=== PATIENT | female | born 1995 | race American Indian/Alaskan Native ===

== ENCOUNTER 2019-05-20 08:09 | Emergency (ER) | payer OTHER ==
[2019-05-20 08:15] VITALS: BP 130/76
[2019-05-20] MEDS ORDERED: ACETAMINOPHEN 325 MG TAB PO ONE (08:33)
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
[2019-05-20] MEDS ORDERED: ONDANSETRON 4 MG ODT TAB PO ONE (09:40)
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
== END 2019-05-20 11:36 | disposition home or self-care (01) ==
LOC: ED 08:09
DX: O9A.211 Injury, poisoning and certain other consequences of external causes complicating pregnancy, first trimester (principal); M54.2 Cervicalgia; R10.30 Lower abdominal pain, unspecified; M79.10 Myalgia, unspecified site; Z87.891 Personal history of nicotine dependence; Z3A.08 8 weeks gestation of pregnancy; V49.49XA Driver injured in collision with other motor vehicles in traffic accident, initial encounter; Y93.89 Activity, other specified; Y92.410 Unspecified street and highway as the place of occurrence of the external cause; Y99.8 Other external cause status
CPT/HCPCS: 76801; Q0162

== ENCOUNTER 2019-12-17 04:13 | Inpatient (IN) | payer OTHER, MEDICAID ==
--- NOTE | 2019-12-17 05:12 | History and Physical Report ---
History of Present Illness Date of examination: 12/17/19 (pt arrived to Triage in active labor) Chief complaint: having pains since 2099 History of present illness: EDC Calculations LMP: 12/27/2019 EDC Confirmation: 12/27/2019 Gestational Age: 7 1/7 weeks Past History : 1 Term Births: 0 Premature Births: 0 Living Children: 0 Para: 0 Mult. Births: 0 Prev : 0 Prev. attempt? 0 Aborta: 0 Elect. Ab: 0 Spont. Ab: 0 Ectopics: 0 Risk Factors: Smoked Tobacco Use: Never smoker Smokeless Tobacco Use: Never Passive smoke exposure: no Drug use: no HIV high-risk behavior: no Alcohol use: no Exercise: no Seatbelt use: 100 % Past Medical History: Reviewed history from 08/02/2017 and no changes required: Negative Past Medical History Past Surgical History: Reviewed history from 08/02/2017 and no changes required: negative Past Medical History Anesthesia Complications: negative Anemia: negative Autoimmune Disorder: negative Bleeding Disorder: negative Blood Transfusions: negative Breast Disease: negative Diabetes: negative Heart Disease: negative Hypertension: negative Hepatitis/Liver Disease: negative Kidney Disease/UTI: negative Neurologic/Epilepsy/Migraines: negative Phlebitis/Varicosities: negative Psychiatric: negative Pulmonary Disease/Asthma: negative Thyroid Disease: negative Hospitalizations: negative 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 Abnormal PAP: negative Social Hx: Patient is single no e/t/d Infection History HIV Risk Eval: no Varicella/Chicken Pox Status: Unknown Genetic History Congenital Heart Defect: Mom: no Dad: no [place] Disease: Mom: no Dad: no Thalassemia Mom: no Dad: no Neural Tube Defect Mom: no Dad: no Down's Syndrome Mom: yes Dad: no Comments: 2nd cousin Han-Sachs Mom: no Dad: no Sickle Cell Disease/Trait Mom: no Dad: no Hemophilia Mom: no Dad: no Muscular Dystrophy Mom: no Dad: no Cystic Fibrosis Mom: no Dad: no Armand Chorea Mom: no Dad: no Mental Retardation Mom: no Dad: no Fragile X Mom: no Dad: no Other Genetic/Chromosomal Disorder Mom: no Dad: no Child w/other defect Mom: no Dad: no Enviromental Exposures Xray Exposure: no Medication, drug, or alcohol use since LMP: no Chemical/Other Exposure: no Exposure to Cat Liter: no Hx of Parvovirus (Fifth Disease): no Occupational Exposure to Children: none Active Medications (reviewed today): None Current Allergies (reviewed today): No known allergies Past History - Obstetrical History Expected Date of Delivery: 12/27/19 Actual Gestation: 38 Week(s) 4 Day(s) : 1 Para: 0 Hx # Term Pregnancies: 0 Number of Pregnancies: 0 Spontaneous Abortions: 0 Induced : 0 Number of Living Children: 0 Medications and Allergies Allergies Allergy/AdvReac Type Severity Reaction Status Date / Time No Known Allergies Allergy Unverified 05/20/19 08:10 Home Medications Medication Instructions Recorded Confirmed Last Taken Type Ondansetron [Zofran Odt] 4 mg PO Q8HR PRN #20 tab.rapdis 05/20/19 Unknown Rx - Vital Signs Vital signs: Vital Signs Pulse BP 83 112/64 12/17/19 04:30 12/17/19 04:30 Temp Pulse Resp BP Pulse Ox 98.2 F 83 18 112/64 12/17/19 04:32 12/17/19 04:32 12/17/19 04:32 12/17/19 04:32 - Physical Exam Breasts: Positive: deferred Cardiovascular: Regular rate, Normal S1, Normal S2 Abdomen: Positive: normal appearance, soft, normal bowel sounds. Negative: distention, tenderness Genitourinary (Female): Positive: normal external genitalia Vulva: both: normal Vagina: Positive: normal moisture. Negative: discharge Cervix: Negative: lesion, discharge Uterus: Positive: normal size, normal contour Adnexa: both: normal Anus/Rectum: Positive: normal perianal skin, heme negative. Negative: rectal mass, hemorrhoids Extremities: Positive: normal Deep Tendon Reflex Grade: Normal +2 - Obstetrical FHR: category 1 Uterine Contraction Monitor Mode: External Cervical Dilatation: 5 (per crop or grain farmer Linda) Cervical Effacement Percentage: 90 station: -2 Uterine Contraction Pattern: Regular Uterine Tone Measurement Phase: Resting Uterine Contraction Intensity: Moderate Results All other labs normal. 2020: Tests: (1) Ct, Ng, Trich vag by BIN ([id number]) Order Note: Clinical Information: SRC:VR SRC:UR Chlamydia by BIN Negative Negative *1 Gonococcus by BIN Negative Negative *2 Trich vag by BIN Negative Negative *3 Tests: (2) Strep Gp B BIN ([id number]) ! Strep Gp B BIN Negative Negative *4 06-08-19 HBsAg Screen Negative Negative *1 RPR Non Reactive Non Reactive *2 Rubella Antibodies, IgG 2.16 index Immune >0.99 *3 Non-immune <0.90 Equivocal 0.90 - 0.99 Immune >0.99 ABO Grouping A *4 Rh Factor Positive *5 Please note: Prior records for this patient's ABO / Rh type are not available for additional verification. Antibody Screen Negative Negative *6 WBC 7.8 x10E3/uL 3.4-10.8 *7 RBC [L] 3.58 x10E6/uL 3.77-5.28 *8 Hemoglobin [L] 11.0 g/dL 11.1-15.9 *9 Hematocrit [L] 33.8 % 34.0-46.6 *10 MCV 94 fL 79-97 *11 MCH 30.7 pg 26.6-33.0 *12 MCHC 32.5 g/dL 31.5-35.7 *13 RDW 14.6 % 12.3-15.4 *14 Platelets 249 x10E3/uL 150-450 *15 Neutrophils 71 % Not Estab. *16 Lymphs 23 % Not Estab. *17 Monocytes 5 % Not Estab. *18 Eos 1 % Not Estab. *19 Basos 0 % Not Estab. *20 ! Immature Cells <No Reported Value> *21 Neutrophils (Absolute) 5.6 x10E3/uL 1.4-7.0 *22 Lymphs (Absolute) 1.8 x10E3/uL 0.7-3.1 *23 Monocytes(Absolute) 0.4 x10E3/uL 0.1-0.9 *24 Eos (Absolute) 0.1 x10E3/uL 0.0-0.4 *25 Baso (Absolute) 0.0 x10E3/uL 0.0-0.2 *26 ! Immature Granulocytes 0 % Not Estab. *27 ! Immature Grans (Abs) 0.0 x10E3/uL 0.0-0.1 *28 ! NRBC <No Reported Value> *29 Hematology Comments: <No Reported Value> *30 Tests: (2) HB Solu + Rflx [facility] ([id number]) Hemoglobin (Hgb) Solubility Negative Negative *31 Tests: (3) Panel [id number] ([id number]) HIV Screen 4th Generation wRfx Non Reactive Non Reactive *32 Tests: (4) HCV Ab w/Rflx to Verification ([id number]) ! HCV Ab <0.1 s/co ratio 0.0-0.9 *33 Tests: (5) Comment: ([id number]) ! Comment: [facility] *34 Non reactive HCV antibody screen is consistent with no HCV infection, unless recent infection is suspected or other evidence exists to indicate HCV infection. Tests: (6) Urine Culture, Routine ([id number]) Urine Culture, Routine Final report *35 Tests: (7) Result ([id number]) ! Result 1 No growth *36 Assessment and Plan 24yo @ 38 weeks in active labor. GBS negative. All orders in EMR. Anticipate delivery. - Patient Problems (1) Maternal varicella, non-immune Onset Date: ~12/17/19 Current Visit: Yes Status: Acute Plan to address problem: Will offer varicella vaccine
[2019-12-17] MEDS ORDERED: MINERAL OIL 30 ML ORAL LIQD PO PRN (05:13)
[2019-12-17] MEDS ORDERED: ONDANSETRON 4 MG/2 ML INJ IV PRN ×2 (05:13→19:15)
[2019-12-17] MEDS ORDERED: TERBUTALINE 1 MG/1 ML INJ SUB-Q PRN (05:13)
[2019-12-17] MEDS ORDERED: ePHEDrine SULFATE 50 MG/1 ML INJ IV PRN ×2 (05:13→07:23)
[2019-12-17] MEDS ORDERED: fentaNYL 100 MCG/2 ML INJ IV PRN (05:13)
[2019-12-17] MEDS ORDERED: LIDOCAINE (2%) 20 MG/1 ML VIAL 20 ML MDV INFILTRATI ONE (05:13)
[2019-12-17] MEDS: LACTATED RINGERS 1,000 ML IV SCH ×2 (05:42→08:54)
[2019-12-17 06:00] LABS: Hematocrit 29.1 % (30.3-42.9); Hemoglobin 9.8 gm/dl (10.1-14.3); Mean Corpuscular HGB Conc 34 % (30-34); Mean Corpuscular Volume 97 fl (79-97); Platelet Count 176 K/mm3 (140-440); Red Blood Count 2.99 M/mm3 (3.65-5.03); Red Cell Distribution Width 13.6 % (13.2-15.2)
[2019-12-17] MEDS ORDERED: OXYTOCIN DRIP 30 UNITS/500 ML BAG IV SCH (06:00)
[2019-12-17] MEDS ORDERED: OXYTOCIN 20 UNIT/1000ML DRIP 20 UNITS/1,000 ML BAG IV SCH ×2 (06:00→20:00)
--- NOTE | 2019-12-17 06:20 | Event Note ---
Date: 12/17/19 (pt bolusing for epidural) Pt in good spirits. Excited to be in labor. SVE 5,90,0 Continue POC Report to Dipika BOLDEN Anticipate delivery
[2019-12-17] MEDS ORDERED: NALOXONE 2 MG/2 ML INJ IV PRN (07:23)
[2019-12-17] MEDS ORDERED: DEXMEDETOMIDINE 200 MCG/2 ML VIAL IV ONE (07:23)
--- NOTE | 2019-12-17 07:24 | Anesthesia Consultation ---
Anesthesia Consult and Med Hx Date of service: 12/17/19 - Airway Anesthetic Teeth Evaluation: Good ROM Head & Neck: Adequate Mental/Hyoid Distance: Adequate Mallampati Class: Class II Intubation Access Assessment: Good - Pulmonary Exam CTA: Yes - Cardiac Exam Cardiac Exam: RRR - Pre-Operative Health Status ASA Pre-Surgery Classification: ASA2 Proposed Anesthetic Plan: Epidural - Pulmonary Hx Smoking: No Hx Asthma: No Hx Respiratory Symptoms: No SOB: No COPD: No Home Oxygen Therapy: No Hx Pneumonia: No Hx Sleep Apnea: No - Cardiovascular System Hx Hypertension: No Hx Coronary Artery Disease: No Hx Heart Attack/AMI: No Hx Angina: No Hx Percutaneous Transluminal Coronary Angioplasty (PTCA): No Hx Cardia Arrhythmia: No Hx Pacemaker: No Hx Internal Defibrillator: No Hx Valvular Heart Disease: No Hx Heart Murmur: No Hx Peripheral Vascular Disease: No - Central Nervous System Hx Neuromuscular Disorder: No Hx Seizures: No CVA: No Hx Back Pain: No Hx Psychiatric Problems: No - Gastrointestinal Hx Ulcer: No Hx Gastroesophageal Reflux Disease: No - Endocrine Hx Renal Disease: No Hx End Stage Renal Disease: No Hx Cirrhosis: No Hx Liver Disease: No Hx Insulin Dependent Diabetes: No Hx Non-Insulin Dependent Diabetes: No Hx Thyroid Disease: No Hx Hypothyroidism: No Hx Hyperthyroidism: No - Hematic Hx Anemia: No Hx Sickle Cell Disease: No - Other Systems Hx Alcohol Use: No Hx Substance Use: No Hx Cancer: No Hx Obesity: No
--- NOTE | 2019-12-17 07:47 | Progress Note ---
Labor Epidural - Labor Epidural Start Time: 07:27 Stop Time: 07:35 Performed by:: Epidural Procedure: Patient is requesting a laboring epidural for laboring pain. Patient IDed, H&P reviewed, all questions and concerns were answered, and consent was signed. Timeout was performed at bedside. Patient in sitting position. Sterile prep and drape was performed. [3] ml of 1% lidocaine skin wheal at L[4]- L [5]. 18- gauge Touhy epidural needle was advanced to loss of resistance with air technique at 6cm. Negative CSF negative blood. Epidural catheter advanced to [12] centimeters. [Negative] Aspiration [negative] test dose. Sterile dressing applied. Patient tolerated procedure.
[2019-12-17] MEDS ORDERED: fentaNYL-BUPIV 2 MCG/ML-0.125% 200 MCG/100 ML BAG EPIDURAL SCH (08:00)
--- NOTE | 2019-12-17 08:06 | Progress Note ---
Assessment and Plan A: 24 y.o. @ term in active labor. Comfortable with epidural. AROM, cervical exam 6/100/0. P: Continue with labor management. Pitocin per protocol. Anticipate . Subjective - Subjective Date of service: 12/17/19 (Comfortable after epidural placement. ) Principal diagnosis: Active labor @ term Objective - Vital Signs Vital Signs: Vital Signs - 12hr 12/17/19 12/17/19 12/17/19 04:30 04:32 05:09 Temperature 98.2 F 98.0 F Pulse Rate 83 83 87 Respiratory 18 18 Rate Blood Pressure 112/64 Blood Pressure 112/64 105/65 [Left] O2 Sat by Pulse Oximetry 12/17/19 12/17/19 12/17/19 05:24 05:52 07:22 Temperature Pulse Rate 87 114 H Respiratory 18 Rate Blood Pressure 105/65 Blood Pressure [Left] O2 Sat by Pulse 94 Oximetry 12/17/19 12/17/19 12/17/19 07:27 07:32 07:37 Temperature Pulse Rate 107 H 88 82 Respiratory Rate Blood Pressure 114/57 Blood Pressure [Left] O2 Sat by Pulse 99 99 98 Oximetry 12/17/19 12/17/19 12/17/19 07:42 07:47 07:52 Temperature Pulse Rate 68 66 70 Respiratory Rate Blood Pressure 98/56 96/51 Blood Pressure [Left] O2 Sat by Pulse 98 98 98 Oximetry 12/17/19 12/17/19 07:57 07:58 Temperature Pulse Rate 67 69 Respiratory Rate Blood Pressure 102/55 Blood Pressure [Left] O2 Sat by Pulse 98 Oximetry - Exam Breasts: deferred Cardiovascular: Regular rate Lungs: Normal air movement Abdomen: Present: normal appearance, soft Vulva: both: normal Uterus: Present: normal FHR: category 1 Uterine Contraction Monitor Mode: External Cervical Dilatation: 6 (AROM small amount of clear to pink fluid) Cervical Effacement Percentage: 100 station: 0 Uterine Contraction Pattern: Regular Uterine Tone Measurement Phase: Resting Uterine Contraction Intensity: Moderate Extremities: normal Deep Tendon Reflex Grade: Normal +2 - Labs Labs: Abnormal Labs 12/17/19 05:20 RBC 2.99 L Hgb 9.8 L Hct 29.1 L MCH 33 H Laboratory Results - last 24 hr 12/17/19 12/17/19 05:20 05:20 WBC 8.5 RBC 2.99 L Hgb 9.8 L Hct 29.1 L MCV 97 MCH 33 H MCHC 34 RDW 13.6 Plt Count 176 Blood Type A POSITIVE Antibody Screen Negative
--- NOTE | 2019-12-17 12:43 | Procedure Note ---
OB Delivery Note - Delivery Date of Delivery: 12/17/19 (Pt delivered at 1208) Looping Inspector: MELBA RAMOS Estimated blood loss: 200cc - Vaginal Delivery presentation: vertex Delivery position: OA Delivery induction: none Delivery augmentation: rupture of membranes, pitocin Delivery monitor: external FHT, external uterine Route of delivery: Delivery placenta: spontaneous Delivery cord: nuchal cord (X 1, easily reduced.), 3 umbilical vessels Episiotomy: none Delivery laceration: 1st degree (1st degree perineal laceration, no repair noted.), other (Right labial abrasion, no repair needed.) Anesthesia: epidural Delivery comments: of viable male infant over intact perineum. Nuchal cord X1 easily reduced. to mothers to mother's chest for skin to skin. Cord cut and clamped after cessation of pulse, and infant handed to CATRACHITO team for evaluation. Spontaneous delivery of placenta intact, complete, 3 vessels noted. Fundus firm, minimal bleeding noted. Perineum and vaginal inspected. 1st degree perineal laceration and right labial abrasion noted, not bleeding, no repair needed. Apgars 8,9, weight 6-7. EBL 200ml. Sponge and instrument counted with RN and nutrition technician and correct X 2. Infant and mother left in stable condition in the care of the RN.
--- NOTE | 2019-12-17 16:50 | Post Anesthesia Evaluation ---
- Post Anesthesia Evaluation Patient Participated: Yes Airway Patent: Yes Stable Respiratory Function: Yes Nausea/Vomiting: No Temp > 96.8F: Yes Pain Manageable: Yes Adequeate Hydration: Yes Anesthesia Complications: No Block Receding Appropriately: Yes Patient on Ventilator: No
[2019-12-17] MEDS ORDERED: PROMETHAZINE 25 MG TAB PO PRN (19:15)
[2019-12-17] MEDS ORDERED: diphenhydrAMINE 25 MG CAP PO PRN (19:15)
[2019-12-17] MEDS ORDERED: ACETAMINOPHEN 325 MG TAB PO PRN (19:15)
[2019-12-17] MEDS ORDERED: LANOLIN/ZINC/DIMETHICONE (LANSINOH) 7 GM TP PRN ×2 (19:15→19:20)
[2019-12-17] MEDS ORDERED: MAGNESIUM HYDROXIDE (MOM) ORAL LIQD UDC PO PRN (19:15)
[2019-12-17] MEDS ORDERED: WITCH HAZEL/ GLYCERIN PAD TP PRN (19:15)
[2019-12-17] MEDS ORDERED: BENZOCAINE/MENTHOL 20/0.5% TOP SPRAY 56 GM TP PRN (19:20)
[2019-12-17] MEDS: IBUPROFEN 800 MG TAB PO SCH (19:50)
[2019-12-17] MEDS: DOCUSATE SODIUM 100 MG CAP PO SCH (21:03)
[2019-12-18] MEDS: IBUPROFEN 800 MG TAB PO SCH (03:47)
[2019-12-18] MEDS ORDERED: DIPHtheria,PERTUSSIS(ACELL),TETANUS VACCINE/PF 0.5 ML VIAL IM ONE (06:00)
[2019-12-18 08:32] LABS: Hematocrit 26.6 % (30.3-42.9); Hemoglobin 9.1 gm/dl (10.1-14.3)
--- NOTE | 2019-12-18 08:59 | Discharge Summary ---
Providers - Providers Date of Admission: 12/17/19 05:29 Date of discharge: 12/18/19 (desires d/c home today) Attending physician: MILA RICHARDS Primary care physician: MILA RICHARDS Hospitalization Reason for admission: Labor Condition: Good Pertinent studies: post delivery H&H 9.1/26.6, asymptomatic anemia from acute blood loss. Procedures: Hospital course: uncomplicated and course Disposition: - TO HOME OR SELFCARE - Discharge Diagnoses (1) Spontaneous vaginal delivery Status: Acute Core Measure Documentation - Palliative Care Palliative Care/ Comfort Measures: Not Applicable - Core Measures Any of the following diagnoses?: none Exam - Constitutional Vitals: Temp Pulse Resp BP Pulse Ox 97.6 F 87 18 110/70 99 12/18/19 01:14 12/18/19 01:14 12/18/19 01:14 12/18/19 01:14 12/18/19 01:14 General appearance: Present: no acute distress, well-nourished - EENT Eyes: Present: PERRL ENT: hearing intact, clear oral mucosa - Neck Neck: Present: supple, normal ROM - Respiratory Respiratory effort: normal Respiratory: bilateral: CTA - Cardiovascular Rhythm: regular Heart Sounds: Absent: rub, click - Extremities Extremities: pulses symmetrical, No edema - Abdominal General gastrointestinal: Present: soft, non-tender, non-distended, normal bowel sounds Female genitourinary: Present: normal - Integumentary Integumentary: Present: clear, warm, dry - Musculoskeletal Musculoskeletal: gait normal, strength equal bilaterally - Psychiatric Psychiatric: appropriate mood/affect, intact judgment & insight - Neurologic Neurologic: CNII-XII intact, moves all extremities - Additional findings Additional findings: , lochia scant, fundus firm Plan Follow up with: MILA RICHARDS MD [Primary Care Provider] - 7 Days Prescriptions: Lidocain2.5%/Prilocai2.5% [Emla] 5 gm TP ONCE PRN #1 tube PRN Reason: Pain Ferrous Sulfate [Feosol 325 MG tab] 325 mg PO BID #60 tablet Ibuprofen [Motrin 800 MG tab] 800 mg PO Q8HR PRN #30 tablet PRN Reason: Pain
[2019-12-18] MEDS ORDERED: VARICELLA VACCINE LIVE/PF 1,350 UNIT/0.5 ML VIAL SQ ONE (09:00)
[2019-12-18] MEDS: DOCUSATE SODIUM 100 MG CAP PO SCH (09:09)
[2019-12-18] MEDS ORDERED: PRENATAL VIT27-FE FUMARATE-FOLIC ACID VIT TAB PO SCH (10:00)
[2019-12-18 12:48] VITALS: BP 112/74
== END 2019-12-18 14:15 | disposition home or self-care (01) | DRG 806 ==
LOC: TRG 04:13 → APU 04:14 → LD 05:13 → TRG 05:14 → LD 05:29 → OB 14:22
PROVIDERS: ADMIT Obstetrics & Gynecology; ATTEND Obstetrics & Gynecology
PROC: 10E0XZZ Delivery of Products of Conception, External Approach (ICD-10-PCS; principal; 2019-12-17)
PROC: 3E0R3BZ Introduction of Anesthetic Agent into Spinal Canal, Percutaneous Approach (ICD-10-PCS; 2019-12-17)
PROC: 00HU33Z Insertion of Infusion Device into Spinal Canal, Percutaneous Approach (ICD-10-PCS; 2019-12-17)
PROC: 0HQ9XZZ Repair Perineum Skin, External Approach (ICD-10-PCS; 2019-12-17)
PROC: 3E033VJ Introduction of Other Hormone into Peripheral Vein, Percutaneous Approach (ICD-10-PCS; 2019-12-17)
PROC: 3E0234Z Introduction of Serum, Toxoid and Vaccine into Muscle, Percutaneous Approach (ICD-10-PCS; 2019-12-18)
PROC: 3E0134Z Introduction of Serum, Toxoid and Vaccine into Subcutaneous Tissue, Percutaneous Approach (ICD-10-PCS; 2019-12-18)
DX: O69.81X0 Labor and delivery complicated by cord around neck, without compression, not applicable or unspecified (principal); D62 Acute posthemorrhagic anemia; Z37.0 Single live birth; Z3A.38 38 weeks gestation of pregnancy; O70.0 First degree perineal laceration during delivery; Z3A.40 40 weeks gestation of pregnancy; O90.81 Anemia of the puerperium
CPT/HCPCS: 36415; 85014; 85018; 85027; 86592; 86850; 86900; 86901; 90715; 90716; G0378; J2590; J3010; J3490; J7120